=== PATIENT | male | born 1975 ===

== ENCOUNTER 2022-08-05 18:21 | Emergency (ER) | payer OTHER ==
[~2022-08-05] VITALS: Ht 167.6 cm; Wt 70.3 kg
[~2022-08-05 18:21] MED LIST: APRESOLINE 10MG10 MG PO; ASA-EC81 MG PO; AVAPRO300 MG PO; CYMBALTA60 MG PO; INTESTINEX680 MG PO; LIPITOR40 MG PO; NEURONTIN300 MG PO; NORVASC 10 MG TAB PO; Neurin-Sl Tablet Sl SL; OXYC1TAB9 PO; TORADOL15 MG; ZANTAC150 M3; ZANTAC150 M3 PO; ZANTAC150 MG PO
== END 2022-08-05 21:28 | disposition home or self-care (01) ==
LOC: ER 18:21
DX: K64.9 Unspecified hemorrhoids (principal)